=== PATIENT | female | born 1975 | race Caucasian/White ===

== ENCOUNTER 2017-03-28 23:04 | Emergency (ER) | payer OTHER ==
[~2017-03-28 23:04] MED LIST: NICOTINE T21 MG/24 H TOP; PROTONIX40 M1 IV; ZOLOFT100 MG PO
--- NOTE | 2017-03-28 23:43 | ED ORDER SUMMARY ---
..... Patient: CONSTANCE HANSEN OrderSheet [facility] VisitID: [id number] [address] [place] [address] 41y, F Registration Date/Time: 03/28/2017 ORDER SHEET Weight: 54.4 kg (stated) Allergies: Aspirin GENERAL ORDERS: MEDICATION ORDERS: Doxycycline Hyclate PO 100 mg (NOW) (23:41 03/28/2017 Livan Torrez) (Ack 23:49 Eduar R.NDwayne) (1:06 Eduar Douglas) IV FLUIDS: ORDER SHEET NOTES: [Electronically signed by Valentina Tovar R.N. (01:06 03/29/2017)] [Electronically signed by Mariano Laboy Dr. (17:05 03/30/2017)] [Electronically locked/signed by Valentina Tovar R.N. (01:06 03/29/2017)]
--- NOTE | 2017-03-28 23:43 | ED ORDER SUMMARY ---
..... Patient: CONSTANCE HANSEN OrderSheet [facility] VisitID: [id number] [address] [place] [address] 41y, F Registration Date/Time: 03/28/2017 ORDER SHEET Weight: 54.4 kg (stated) Allergies: Aspirin GENERAL ORDERS: MEDICATION ORDERS: Doxycycline Hyclate PO 100 mg (NOW) (23:41 03/28/2017 Livan Torrez) (Ack 23:49 Eduar R.NDwayne) (1:06 Eduar Douglas) IV FLUIDS: ORDER SHEET NOTES: [Electronically signed by Valentina Tovar R.N. (01:06 03/29/2017)] [Electronically signed by Mariano Laboy Dr. (17:05 03/30/2017)] [Electronically locked/signed by Valentina Tovar R.N. (01:06 03/29/2017)]
--- NOTE | 2017-03-28 23:43 | ED CLINICAL REPORT ---
Clinical Report - Physicians/Mid Levels [facility] [address] [place] [address] 03/28/2017 23:06 Patient: CONSTANCE HANSEN Time Seen: 2320. Arrived- By private vehicle. Historian- patient. HISTORY OF PRESENT ILLNESS Chief Complaint: BOIL. This started past few days and is still present and worsening. It was gradual in onset and has been constant but is not gone now. It is described as painful. It has been located on the right chin. No cause has been identified. No recent medication or food exposure. Was not recently exposed to poison ector or poison oak. Similar symptoms previously: None. Recent medical care: Not recently seen/assessed. REVIEW OF SYSTEMS No fever, chills, difficulty breathing, headache or chest pain. All systems otherwise negative, except as recorded above. PAST HISTORY See nurses notes. Tetanus immunization status is up-to-date. Medications: None. Allergies: Aspirin. SOCIAL HISTORY Smoker- current status unknown. Occasional alcohol use. No drug use. No recent travel. Is a local resident. ADDITIONAL NOTES The nursing notes have been reviewed. PHYSICAL EXAM Vital Signs: 03/28/2017 23:22 BP: 126/85. HR: 108. RR: 14. O2 saturation: 97%. Temp: 97.9 F. Pain level now: 0/10. Blood pressure normal. Oxygen saturation normal. Appearance: Alert. Oriented X3. No acute distress. Eyes: Pupils equal, round and reactive to light. Conjunctivae and eyelids normal. ENT: Ears normal. Nose normal. Pharynx normal. CVS: Normal heart rate and rhythm. Heart sounds normal. Respiratory: No respiratory distress. Breath sounds normal. Chest nontender. Abdomen: Nontender. No organomegaly. Skin: (small area of cellulitis in the right lower chin. 2 small areas of abscesses which are smaller than 0.5 cm in greatest diameter noted. This is the area of induration. There is no fluctuance. There is no pustule. No crepitus. No other abnormalities noted on patient's examination.). PROGRESS AND PROCEDURES Course of Care: the patient is a 41 old female presenting for a dilation of abscess to the right chin. No signs of systemic involvement at this time. Patient appears nontoxic. No signs of more sinister type of infection. Did not feel patient requires a bedside incision and drainage at this time. There is small and has not developed into aarea that would be readily drained. Also for cosmetic reasons, we'll try to avoidincision and drainage. Patient is agreeable to the treatment plan. First dose of antibiotics offered here in the emergency department. Discussed with the patient to work appearing emergency department including diagnosis, home care, follow-up, and return precautions. All questions have been answered. The patient expressed understanding of these instructions and was agreeable to them. Prior to patient's discharge, tachycardia noted to resolve. Patient states that she was initially nervous upon first evaluation. Disposition: Discharged. Condition: good. CLINICAL IMPRESSION Cellulitis of the chin. Superficial abscess. INSTRUCTIONS Warnings: GENERAL WARNINGS: Return or contact your physician immediately if your condition worsens or changes unexpectedly, if not improving as expected, or if other problems arise. Specifically return if pain, vomiting, bleeding, breathing difficulty or fever. Your Current Medications: CONTINUE TAKING THE FOLLOWING MEDICATIONS: None*. Prescription Medications: Doxycycline 100 mg: Take 1 capsule orally every 12 hours for 10 days. No refill. (disp 20 caps. avoid direct sun exposure while on this medication) Follow-up: Return to the emergency department as needed. Follow up with your doctor in three days. Reason for referral: recheck today's concerns. Summary of care provided to patient via paper. Screening today revealed the patient's blood pressure to be in the normal range. The patient should follow up with a primary care provider for blood pressure management. Understanding of the discharge instructions verbalized by patient. Follow-up with: [facility], , , [address], , [place], [address] Follow up. Reason for referral: contact for follow up if you can not get in to your primary care provider. Summary of care provided to patient via paper. (Electronically signed by Mariano Laboy Dr. 03/30/2017 17:05)
--- NOTE | 2017-03-28 23:43 | ED NURSING NOTES ---
Clinical Report - Nurses [facility] [address] [place] [address] 03/28/2017 23:06 Patient: CONSTANCE HANSEN TRIAGE Triage time 23:22. Acuity: LEVEL 4. Chief Complaint: BOIL. 23:28 03/28/17. Alert. No acute distress. WILL COMA SCORE: Will Coma Scale: 15- eyes open spontaneously (4); best verbal response- oriented x 4 (5); best motor response- obeys commands (6). --23:28 Valentina Tovar R.N. 23:22 03/28/17. BP: 126/85. HR: 108. RR: 14. O2 saturation: 97%. Temp: 97.9 F. Pain level now: 0/10. --23:28 Valentina Tovar R.N. Weight: 54.4 kg stated. Height/Length: 63 inches Per Patient. BMI: 21.2. --23:24 Valentina Tovar R.N. Medications None. --23:24 Valentina Tovar R.N. Allergies Aspirin. --23:24 Valentina Tovar R.N. History Arrived by private vehicle. Historian: patient. Accompanied by friend. Primary physician (No PCP). Reported as located on the face (chin). Onset. (two days ago). It is described as painful. PAST MEDICAL HX: Immunizations: up-to-date. Last normal menstrual period- two weeks ago. Denies current . SOCIAL HX: Heavy tobacco smoker- less than 1 pack per day. Occasional alcohol use. FALL RISK ASSESSMENT: Fall risk assessment completed. No fall risk identified. NUTRITIONAL RISK ASSESSMENT: The nutritional risk assessment revealed no deficiencies. FUNCTIONAL ASSESSMENT: Functional assessment: no impairments noted. LEARNING NEEDS ASSESSMENT: The learning needs assessment revealed no barriers. SKIN INTEGRITY ASSESSMENT: Skin integrity risk assessment completed. No skin integrity risk identified. --23:28 Valentina Tovar R.N. PROBLEMS: UTI - Urinary Tract Infection. Substance Abuse. Hypokalemia. . Tetanus Status. Laceration. Lifestyle / Substance Problems. Hypertension. Cellulitis. Pneumonia. Ectopic . Abscess. Immunizations. LNMP - Last Normal Menstrual Period. --23:24 Valentina Tovar R.N. Crohn's Disease [RuleOut]. Abdominal Pain [RuleOut]. Enteritis [RuleOut]. --23:24 Valentina Tovar R.N. ADDITIONAL SURGERIES: . Hernia Repair. --23:24 Valentina Tovar R.N. Interventions ID band on patient. To treatment room. --23:28 Valentina Tovar R.N. PHYSICAL ASSESSMENT Ambulatory to room. ( Patient has tender, swollen boil on face.). GENERAL / NEURO / PSYCH: Alert. The patient does not appear to be in acute distress. Oriented X 4. HEENT: Mucous membranes are pink. RESPIRATORY: Respirations not labored. CVS: Capillary refill less than 2 seconds. Pulses within normal limits. SKIN: Skin is intact, warm and dry. --23:30 Valentina Tovar R.N. NURSING PROGRESS NOTES 23:30 03/28/17. Two patient identifiers checked. Call light placed in reach. Bed placed in lowest position. Brakes of bed on. Patient ready for evaluation- chart flagged and notification provided. --23:30 Valentina Tovar R.N. 23:50 03/28/2017 DOXYCYCLINE HYCLATE PO Tablets 100 mg given. Allergies verified and confirmed 5 rights. --01:06 Valentina Tovar R.N. DISPOSITION / DISCHARGE 23:54 03/28/17. No learning barriers present. Discharge instructions provided and reviewed with the patient. Reviewed warnings. Reviewed medication(s). Treatments reviewed. Reviewed referrals. Patient verbalized understanding. Written instructions provided in [place]. The patient was discharged home and accompanied by tool and gauge inspector. She left the Emergency Department ambulatory and via private vehicle. Community Support Specialist driving. --23:54 Valentina Tovar R.N. 23:22 03/28/17. BP: 126/85. HR: 108. RR: 14. O2 saturation: 97%. Temp: 97.9 F. Pain level now: 0/10. --23:54 Valentina Tovar R.N. Locked/Released at 03/29/2017 1:06 by Valentina Tovar R.N.
--- NOTE | 2017-03-28 23:43 | ED NURSING NOTES ---
Clinical Report - Nurses [facility] [address] [place] [address] 03/28/2017 23:06 Patient: CONSTANCE HANSEN TRIAGE Triage time 23:22. Acuity: LEVEL 4. Chief Complaint: BOIL. 23:28 03/28/17. Alert. No acute distress. WILL COMA SCORE: Will Coma Scale: 15- eyes open spontaneously (4); best verbal response- oriented x 4 (5); best motor response- obeys commands (6). --23:28 Valentina Tovar R.N. 23:22 03/28/17. BP: 126/85. HR: 108. RR: 14. O2 saturation: 97%. Temp: 97.9 F. Pain level now: 0/10. --23:28 Valentina Tovar R.N. Weight: 54.4 kg stated. Height/Length: 63 inches Per Patient. BMI: 21.2. --23:24 Valentina Tovar R.N. Medications None. --23:24 Valentina Tovar R.N. Allergies Aspirin. --23:24 Valentina Tovar R.N. History Arrived by private vehicle. Historian: patient. Accompanied by friend. Primary physician (No PCP). Reported as located on the face (chin). Onset. (two days ago). It is described as painful. PAST MEDICAL HX: Immunizations: up-to-date. Last normal menstrual period- two weeks ago. Denies current . SOCIAL HX: Heavy tobacco smoker- less than 1 pack per day. Occasional alcohol use. FALL RISK ASSESSMENT: Fall risk assessment completed. No fall risk identified. NUTRITIONAL RISK ASSESSMENT: The nutritional risk assessment revealed no deficiencies. FUNCTIONAL ASSESSMENT: Functional assessment: no impairments noted. LEARNING NEEDS ASSESSMENT: The learning needs assessment revealed no barriers. SKIN INTEGRITY ASSESSMENT: Skin integrity risk assessment completed. No skin integrity risk identified. --23:28 Valentina Tovar R.N. PROBLEMS: UTI - Urinary Tract Infection. Substance Abuse. Hypokalemia. . Tetanus Status. Laceration. Lifestyle / Substance Problems. Hypertension. Cellulitis. Pneumonia. Ectopic . Abscess. Immunizations. LNMP - Last Normal Menstrual Period. --23:24 Valentina Tovar R.N. Crohn's Disease [RuleOut]. Abdominal Pain [RuleOut]. Enteritis [RuleOut]. --23:24 Valentina Tovar R.N. ADDITIONAL SURGERIES: . Hernia Repair. --23:24 Valentina Tovar R.N. Interventions ID band on patient. To treatment room. --23:28 Valentina Tovar R.N. PHYSICAL ASSESSMENT Ambulatory to room. ( Patient has tender, swollen boil on face.). GENERAL / NEURO / PSYCH: Alert. The patient does not appear to be in acute distress. Oriented X 4. HEENT: Mucous membranes are pink. RESPIRATORY: Respirations not labored. CVS: Capillary refill less than 2 seconds. Pulses within normal limits. SKIN: Skin is intact, warm and dry. --23:30 Valentina Tovar R.N. NURSING PROGRESS NOTES 23:30 03/28/17. Two patient identifiers checked. Call light placed in reach. Bed placed in lowest position. Brakes of bed on. Patient ready for evaluation- chart flagged and notification provided. --23:30 Valentina Tovar R.N. 23:50 03/28/2017 DOXYCYCLINE HYCLATE PO Tablets 100 mg given. Allergies verified and confirmed 5 rights. --01:06 Valentina Tovar R.N. DISPOSITION / DISCHARGE 23:54 03/28/17. No learning barriers present. Discharge instructions provided and reviewed with the patient. Reviewed warnings. Reviewed medication(s). Treatments reviewed. Reviewed referrals. Patient verbalized understanding. Written instructions provided in [place]. The patient was discharged home and accompanied by hay stacker operator. She left the Emergency Department ambulatory and via private vehicle. Washer Hand driving. --23:54 Valentina Tovar R.N. 23:22 03/28/17. BP: 126/85. HR: 108. RR: 14. O2 saturation: 97%. Temp: 97.9 F. Pain level now: 0/10. --23:54 Valentina Tovar R.N. Locked/Released at 03/29/2017 1:06 by Valentina Tovar R.N.
--- NOTE | 2017-03-28 23:43 | ED CLINICAL REPORT ---
Clinical Report - Physicians/Mid Levels [facility] [address] [place] [address] 03/28/2017 23:06 Patient: CONSTANCE HANSEN Time Seen: 2320. Arrived- By private vehicle. Historian- patient. HISTORY OF PRESENT ILLNESS Chief Complaint: BOIL. This started past few days and is still present and worsening. It was gradual in onset and has been constant but is not gone now. It is described as painful. It has been located on the right chin. No cause has been identified. No recent medication or food exposure. Was not recently exposed to poison ector or poison oak. Similar symptoms previously: None. Recent medical care: Not recently seen/assessed. REVIEW OF SYSTEMS No fever, chills, difficulty breathing, headache or chest pain. All systems otherwise negative, except as recorded above. PAST HISTORY See nurses notes. Tetanus immunization status is up-to-date. Medications: None. Allergies: Aspirin. SOCIAL HISTORY Smoker- current status unknown. Occasional alcohol use. No drug use. No recent travel. Is a local resident. ADDITIONAL NOTES The nursing notes have been reviewed. PHYSICAL EXAM Vital Signs: 03/28/2017 23:22 BP: 126/85. HR: 108. RR: 14. O2 saturation: 97%. Temp: 97.9 F. Pain level now: 0/10. Blood pressure normal. Oxygen saturation normal. Appearance: Alert. Oriented X3. No acute distress. Eyes: Pupils equal, round and reactive to light. Conjunctivae and eyelids normal. ENT: Ears normal. Nose normal. Pharynx normal. CVS: Normal heart rate and rhythm. Heart sounds normal. Respiratory: No respiratory distress. Breath sounds normal. Chest nontender. Abdomen: Nontender. No organomegaly. Skin: (small area of cellulitis in the right lower chin. 2 small areas of abscesses which are smaller than 0.5 cm in greatest diameter noted. This is the area of induration. There is no fluctuance. There is no pustule. No crepitus. No other abnormalities noted on patient's examination.). PROGRESS AND PROCEDURES Course of Care: the patient is a 41 old female presenting for a dilation of abscess to the right chin. No signs of systemic involvement at this time. Patient appears nontoxic. No signs of more sinister type of infection. Did not feel patient requires a bedside incision and drainage at this time. There is small and has not developed into aarea that would be readily drained. Also for cosmetic reasons, we'll try to avoidincision and drainage. Patient is agreeable to the treatment plan. First dose of antibiotics offered here in the emergency department. Discussed with the patient to work appearing emergency department including diagnosis, home care, follow-up, and return precautions. All questions have been answered. The patient expressed understanding of these instructions and was agreeable to them. Prior to patient's discharge, tachycardia noted to resolve. Patient states that she was initially nervous upon first evaluation. Disposition: Discharged. Condition: good. CLINICAL IMPRESSION Cellulitis of the chin. Superficial abscess. INSTRUCTIONS Warnings: GENERAL WARNINGS: Return or contact your physician immediately if your condition worsens or changes unexpectedly, if not improving as expected, or if other problems arise. Specifically return if pain, vomiting, bleeding, breathing difficulty or fever. Your Current Medications: CONTINUE TAKING THE FOLLOWING MEDICATIONS: None*. Prescription Medications: Doxycycline 100 mg: Take 1 capsule orally every 12 hours for 10 days. No refill. (disp 20 caps. avoid direct sun exposure while on this medication) Follow-up: Return to the emergency department as needed. Follow up with your doctor in three days. Reason for referral: recheck today's concerns. Summary of care provided to patient via paper. Screening today revealed the patient's blood pressure to be in the normal range. The patient should follow up with a primary care provider for blood pressure management. Understanding of the discharge instructions verbalized by patient. Follow-up with: [facility], , , [address], , [place], [id number] Follow up. Reason for referral: contact for follow up if you can not get in to your primary care provider. Summary of care provided to patient via paper. (Electronically signed by Mariano Laboy Dr. 03/30/2017 17:05)
--- NOTE | 2017-03-30 17:05 | ED MAR SUMMARY ---
..... Medication Administration Record [address] [place] [address] Patient: CONSTANCE HANSEN Visit ID: [id number] 41y, F Weight: 54.4 kg Height/Length: 63 in BMI: 21.2 ALLERGIES: Aspirin Given 23:50 03/28/2017 Valentina Tovar R.N. Medication Administered: DOXYCYCLINE HYCLATE [PO], Dose: 100 mg Tablets PO. Medication Ordered: Doxycycline Hyclate PO 100 mg (NOW).
--- NOTE | 2017-03-30 17:05 | ED MED RECONCILIATION SUMMARY ---
Patient: CONSTANCE HANSEN Medication Reconciliation Report [facility] VisitID: [id number] [address] [place] [address] 41y, F Registration Date/Time: 03/28/2017 Weight: 54.4 kg Height/Length: 63 in. BMI: 21.3 ALLERGIES: Aspirin The patient's Home Medications are listed below: NONE. The source(s) of the original Home Medication information: Not obtained. The following Medications were given to the patient in the Emergency Department: DOXYCYCLINE HYCLATE [PO] PO 100 mg, administered: 03/28/2017 11:50:00 PM The following Medications were prescribed to the patient: Doxycycline 100 mg: Take 1 capsule orally every 12 hours for 10 days. No refill.(disp 20 caps. avoid direct sun exposure while on this medication) -- Mariano Laboy Dr.
--- NOTE | 2017-03-30 17:05 | ED DISCHARGE INSTRUCTIONS ---
Patient: CONSTANCE HANSEN General Instructions VisitID: [id number] [address] [place] [address] 41y, F Registration Date/Time: 03/28/2017 Cellulitis of the chin. Superficial abscess. INSTRUCTIONS Warnings: GENERAL WARNINGS: Return or contact your physician immediately if your condition worsens or changes unexpectedly, if not improving as expected, or if other problems arise. Specifically return if pain, vomiting, bleeding, breathing difficulty or fever. Your Current Medications: CONTINUE TAKING THE FOLLOWING MEDICATIONS: None*. Prescription Medications: Doxycycline 100 mg: Take 1 capsule orally every 12 hours for 10 days. No refill. (disp 20 caps. avoid direct sun exposure while on this medication) Follow-up: Return to the emergency department as needed. Follow up with your doctor in three days. Reason for referral: recheck today's concerns. Summary of care provided to patient via paper. Screening today revealed the patient's blood pressure to be in the normal range. The patient should follow up with a primary care provider for blood pressure management. Understanding of the discharge instructions verbalized by patient. Follow-up with: [facility], , , [address], , [place], [id number] Follow up. Reason for referral: contact for follow up if you can not get in to your primary care provider. Summary of care provided to patient via paper. ADDITIONAL INFORMATION Cellulitis You have an infection of the skin known as cellulitis. This usually starts with a scrape, cut, insect bite, blister or other opening in the skin which becomes infected. This is a serious condition. It must be watched closely to be sure the infection is not spreading. With antibiotic treatment, the size of the red area will gradually shrink in size until the skin returns to normal. This will take 7-10 days. The red area should never increase in size once the antibiotic medicine has been started. Occasionally, an infection will be resistant to one antibiotic and another one will have to be used. Home Care: 1) Limit the use of the affected part, since excess movement can cause the infection to spread. 2) If the infection is on your leg, walk as little as possible during the first few days of the treatment. Keep your leg elevated while sitting. This will reduce swelling. 3) Take all of the antibiotic medicine exactly as directed until it is gone. Be careful not to miss any doses, especially during the first seven days. Follow Up with your doctor or this facility as directed. Check the infected area daily for the warning signs listed below. Get Prompt Medical Attention if any of the following occur: -- Spreading area of redness -- Increasing swelling or pain -- Appearance of pus or drainage -- Fever over 100.4 F (38.0 C) oral, or over 101.4 F (38.6 C) rectal, after two days on antibiotics Abscess (Antibiotic Treatment Only) An abscess (sometimes called a boil) occurs when bacteria get trapped under the skin and begin to grow. Pus forms inside the abscess as the body responds to the bacteria. An abscess can occur with an insect bite, ingrown hair, blocked oil gland, pimple, cyst, or puncture wound. In the early stages, redness and tenderness are the only symptoms. Sometimes, this stage can be treated with antibiotics alone. If the abscess does not respond to antibiotic treatment, it will need to be drained with a small cut, under local anesthesia. Home care The following will help you care for your abscess at home: Soak the wound in hot water or apply hot packs (small towel soaked in hot water) to the area for 20 minutes at a time. Do this three to four times a day. Apply antibiotic cream or ointment onto the skin 3-4 times a day, unless something else was prescribed. Some ointments include an antibiotic plus a local pain reliever. If your doctor prescribed antibiotics, do not stop taking this medication until you have finished the prescribed course or the doctor tells you to stop. You may use an [id number]-[id number] pain medication to control pain, unless another pain medicine was prescribed. If you have chronic liver or kidney disease or ever had a stomach ulcer or GI bleeding, talk with your doctor before using these any of these. Follow-up care Follow up with your health care provider as advised by our staff. Look at your wound each day for the signs of worsening infection listed below. When to seek medical care Get prompt medical attention if any of the following occur: An increase in redness or swelling Red streaks in the skin leading away from the abscess An increase in local pain or swelling Fever of 100.4F (38C) or higher, or as directed by your health care provider Pus or fluid coming from the abscess Doxycycline Monohydrate Oral tablet What is this medicine? DOXYCYCLINE (dox jurgen ball) is a tetracycline antibiotic. It kills certain bacteria or stops their growth. It is used to treat many kinds of infections, like dental, skin, respiratory, and urinary tract infections. It also treats acne, Lyme disease, malaria, and certain sexually transmitted infections. How should I use this medicine? Take this medicine by mouth with a full glass of water. Follow the directions on the prescription label. It is best to take this medicine without food, but if it upsets your stomach take it with food. Take your medicine at regular intervals. Do not take your medicine more often than directed. Take all of your medicine as directed even if you think you are better. Do not skip doses or stop your medicine early. Talk to your c programmer regarding the use of this medicine in children. Special care may be needed. While this drug may be prescribed for children as young as 8 years old for selected conditions, precautions do apply. What side effects may I notice from receiving this medicine? Side effects that you should report to your doctor or health home care giver as soon as possible: allergic reactions like skin rash, itching or hives, swelling of the face, lips, or tongue difficulty breathing fever itching in the rectal or genital area pain on swallowing redness, blistering, peeling or loosening of the skin, including inside the mouth severe stomach pain or cramps unusual bleeding or bruising unusually weak or tired yellowing of the eyes or skin Side effects that usually do not require medical attention (report to your doctor or health home care giver if they continue or are bothersome): diarrhea loss of appetite nausea, vomiting What may interact with this medicine? antacids barbiturates control pills bismuth subsalicylate carbamazepine methoxyflurane other antibiotics phenytoin vitamins that contain iron warfarin What if I miss a dose? If you miss a dose, take it as soon as you can. If it is almost time for your next dose, take only that dose. Do not take double or extra doses. Where should I keep my medicine? Keep out of the reach of children. Store at room temperature, below 30 degrees C (86 degrees F). Protect from light. Keep container tightly closed. Throw away any unused medicine after the expiration date. Taking this medicine after the expiration date can make you seriously ill. What should I tell my health care provider before I take this medicine? They need to know if you have any of these conditions: liver disease long exposure to sunlight like working outdoors stomach problems like colitis an unusual or allergic reaction to doxycycline, tetracycline antibiotics, other medicines, foods, dyes, or preservatives or trying to get breast-feeding What should I watch for while using this medicine? Tell your doctor or health home care giver if your symptoms do not improve. Do not treat diarrhea with over the counter products. Contact your doctor if you have diarrhea that lasts more than 2 days or if it is severe and watery. Do not take this medicine just before going to bed. It may not dissolve properly when you lay down and can cause pain in your throat. Drink plenty of fluids while taking this medicine to also help reduce irritation in your throat. This medicine can make you more sensitive to the sun. Keep out of the sun. If you cannot avoid being in the sun, wear protective clothing and use sunscreen. Do not use sun lamps or tanning beds/booths. control pills may not work properly while you are taking this medicine. Talk to your doctor about using an extra method of control. If you are being treated for a sexually transmitted infection, avoid sexual contact until you have finished your treatment. Your sexual partner may also need treatment. Avoid antacids, aluminum, calcium, magnesium, and iron products for 4 hours before and 2 hours after taking a dose of this medicine. If you are using this medicine to prevent malaria, you should still protect yourself from contact with mosquitos. Stay in screened-in areas, use mosquito nets, keep your body covered, and use an insect repellent. You have been given the following additional information: Cellulitis Abscess, Antiobiotic Treatment Only Doxycycline Monohydrate Oral tablet (Electronically signed by Mariano Laboy Dr. 03/30/2017 17:05)
--- NOTE | 2017-03-30 17:05 | ED DISCHARGE INSTRUCTIONS ---
Patient: CONSTANCE HANSEN General Instructions Merged With [facility] VisitID: [id number] [address] [place] [address] 41y, F Registration Date/Time: 03/28/2017 Cellulitis of the chin. Superficial abscess. INSTRUCTIONS Warnings: GENERAL WARNINGS: Return or contact your physician immediately if your condition worsens or changes unexpectedly, if not improving as expected, or if other problems arise. Specifically return if pain, vomiting, bleeding, breathing difficulty or fever. Your Current Medications: CONTINUE TAKING THE FOLLOWING MEDICATIONS: None*. Prescription Medications: Doxycycline 100 mg: Take 1 capsule orally every 12 hours for 10 days. No refill. (disp 20 caps. avoid direct sun exposure while on this medication) Follow-up: Return to the emergency department as needed. Follow up with your doctor in three days. Reason for referral: recheck today's concerns. Summary of care provided to patient via paper. Screening today revealed the patient's blood pressure to be in the normal range. The patient should follow up with a primary care provider for blood pressure management. Understanding of the discharge instructions verbalized by patient. Follow-up with: [facility], , , [address], , [place], [id number] Follow up. Reason for referral: contact for follow up if you can not get in to your primary care provider. Summary of care provided to patient via paper. ADDITIONAL INFORMATION Cellulitis You have an infection of the skin known as cellulitis. This usually starts with a scrape, cut, insect bite, blister or other opening in the skin which becomes infected. This is a serious condition. It must be watched closely to be sure the infection is not spreading. With antibiotic treatment, the size of the red area will gradually shrink in size until the skin returns to normal. This will take 7-10 days. The red area should never increase in size once the antibiotic medicine has been started. Occasionally, an infection will be resistant to one antibiotic and another one will have to be used. Home Care: 1) Limit the use of the affected part, since excess movement can cause the infection to spread. 2) If the infection is on your leg, walk as little as possible during the first few days of the treatment. Keep your leg elevated while sitting. This will reduce swelling. 3) Take all of the antibiotic medicine exactly as directed until it is gone. Be careful not to miss any doses, especially during the first seven days. Follow Up with your doctor or this facility as directed. Check the infected area daily for the warning signs listed below. Get Prompt Medical Attention if any of the following occur: -- Spreading area of redness -- Increasing swelling or pain -- Appearance of pus or drainage -- Fever over 100.4 F (38.0 C) oral, or over 101.4 F (38.6 C) rectal, after two days on antibiotics Abscess (Antibiotic Treatment Only) An abscess (sometimes called a boil) occurs when bacteria get trapped under the skin and begin to grow. Pus forms inside the abscess as the body responds to the bacteria. An abscess can occur with an insect bite, ingrown hair, blocked oil gland, pimple, cyst, or puncture wound. In the early stages, redness and tenderness are the only symptoms. Sometimes, this stage can be treated with antibiotics alone. If the abscess does not respond to antibiotic treatment, it will need to be drained with a small cut, under local anesthesia. Home care The following will help you care for your abscess at home: Soak the wound in hot water or apply hot packs (small towel soaked in hot water) to the area for 20 minutes at a time. Do this three to four times a day. Apply antibiotic cream or ointment onto the skin 3-4 times a day, unless something else was prescribed. Some ointments include an antibiotic plus a local pain reliever. If your doctor prescribed antibiotics, do not stop taking this medication until you have finished the prescribed course or the doctor tells you to stop. You may use an tbaj-nlo-[id number] pain medication to control pain, unless another pain medicine was prescribed. If you have chronic liver or kidney disease or ever had a stomach ulcer or GI bleeding, talk with your doctor before using these any of these. Follow-up care Follow up with your health care provider as advised by our staff. Look at your wound each day for the signs of worsening infection listed below. When to seek medical care Get prompt medical attention if any of the following occur: An increase in redness or swelling Red streaks in the skin leading away from the abscess An increase in local pain or swelling Fever of 100.4F (38C) or higher, or as directed by your health care provider Pus or fluid coming from the abscess Doxycycline Monohydrate Oral tablet What is this medicine? DOXYCYCLINE (dox jurgen ball) is a tetracycline antibiotic. It kills certain bacteria or stops their growth. It is used to treat many kinds of infections, like dental, skin, respiratory, and urinary tract infections. It also treats acne, Lyme disease, malaria, and certain sexually transmitted infections. How should I use this medicine? Take this medicine by mouth with a full glass of water. Follow the directions on the prescription label. It is best to take this medicine without food, but if it upsets your stomach take it with food. Take your medicine at regular intervals. Do not take your medicine more often than directed. Take all of your medicine as directed even if you think you are better. Do not skip doses or stop your medicine early. Talk to your manager decision support regarding the use of this medicine in children. Special care may be needed. While this drug may be prescribed for children as young as 8 years old for selected conditions, precautions do apply. What side effects may I notice from receiving this medicine? Side effects that you should report to your doctor or health certified social workers in health care as soon as possible: allergic reactions like skin rash, itching or hives, swelling of the face, lips, or tongue difficulty breathing fever itching in the rectal or genital area pain on swallowing redness, blistering, peeling or loosening of the skin, including inside the mouth severe stomach pain or cramps unusual bleeding or bruising unusually weak or tired yellowing of the eyes or skin Side effects that usually do not require medical attention (report to your doctor or health certified social workers in health care if they continue or are bothersome): diarrhea loss of appetite nausea, vomiting What may interact with this medicine? antacids barbiturates control pills bismuth subsalicylate carbamazepine methoxyflurane other antibiotics phenytoin vitamins that contain iron warfarin What if I miss a dose? If you miss a dose, take it as soon as you can. If it is almost time for your next dose, take only that dose. Do not take double or extra doses. Where should I keep my medicine? Keep out of the reach of children. Store at room temperature, below 30 degrees C (86 degrees F). Protect from light. Keep container tightly closed. Throw away any unused medicine after the expiration date. Taking this medicine after the expiration date can make you seriously ill. What should I tell my health care provider before I take this medicine? They need to know if you have any of these conditions: liver disease long exposure to sunlight like working outdoors stomach problems like colitis an unusual or allergic reaction to doxycycline, tetracycline antibiotics, other medicines, foods, dyes, or preservatives or trying to get breast-feeding What should I watch for while using this medicine? Tell your doctor or health certified social workers in health care if your symptoms do not improve. Do not treat diarrhea with over the counter products. Contact your doctor if you have diarrhea that lasts more than 2 days or if it is severe and watery. Do not take this medicine just before going to bed. It may not dissolve properly when you lay down and can cause pain in your throat. Drink plenty of fluids while taking this medicine to also help reduce irritation in your throat. This medicine can make you more sensitive to the sun. Keep out of the sun. If you cannot avoid being in the sun, wear protective clothing and use sunscreen. Do not use sun lamps or tanning beds/booths. control pills may not work properly while you are taking this medicine. Talk to your doctor about using an extra method of control. If you are being treated for a sexually transmitted infection, avoid sexual contact until you have finished your treatment. Your sexual partner may also need treatment. Avoid antacids, aluminum, calcium, magnesium, and iron products for 4 hours before and 2 hours after taking a dose of this medicine. If you are using this medicine to prevent malaria, you should still protect yourself from contact with mosquitos. Stay in screened-in areas, use mosquito nets, keep your body covered, and use an insect repellent. You have been given the following additional information: Cellulitis Abscess, Antiobiotic Treatment Only Doxycycline Monohydrate Oral tablet (Electronically signed by Mariano Laboy Dr. 03/30/2017 17:05)
--- NOTE | 2017-03-30 17:05 | ED MAR SUMMARY ---
..... Medication Administration Record [facility] [address] [place] [address] Patient: CONSTANCE HANSEN Visit ID: [id number] 41y, F Weight: 54.4 kg Height/Length: 63 in BMI: 21.2 ALLERGIES: Aspirin Given 23:50 03/28/2017 Valentina Tovar R.N. Medication Administered: DOXYCYCLINE HYCLATE [PO], Dose: 100 mg Tablets PO. Medication Ordered: Doxycycline Hyclate PO 100 mg (NOW).
--- NOTE | 2017-03-30 17:05 | ED MED RECONCILIATION SUMMARY ---
Patient: CONSTANCE HANSEN Medication Reconciliation Report [facility] VisitID: [id number] [address] [place] [address] 41y, F Registration Date/Time: 03/28/2017 Weight: 54.4 kg Height/Length: 63 in. BMI: 21.3 ALLERGIES: Aspirin The patient's Home Medications are listed below: NONE. The source(s) of the original Home Medication information: Not obtained. The following Medications were given to the patient in the Emergency Department: DOXYCYCLINE HYCLATE [PO] PO 100 mg, administered: 03/28/2017 11:50:00 PM The following Medications were prescribed to the patient: Doxycycline 100 mg: Take 1 capsule orally every 12 hours for 10 days. No refill.(disp 20 caps. avoid direct sun exposure while on this medication) -- Mariano Laboy Dr.
== END 2017-03-28 23:54 | disposition home or self-care (01) ==
LOC: ED SRH 23:04
DX: L02.01 Cutaneous abscess of face (principal); L03.211 Cellulitis of face; Z88.6 Allergy status to analgesic agent